=== PATIENT | female | born 1950 | race African-American/Black ===

== ENCOUNTER 2019-10-14 11:06 | Emergency (ER) | payer MEDICARE, OTHER ==
[~2019-10-14] VITALS: Ht 165.1 cm; Wt 61.5 kg
[2019-10-14] MEDS ORDERED: AMLO5TAB88 PO (11:18)
[2019-10-14] MEDS ORDERED: SODIUM CHLORIDE 0.9% 1,000 ML IV ONE (11:37)
[2019-10-14] MEDS ORDERED: KETOROLAC 30MG/ML VIAL IV STA (11:37)
[2019-10-14 12:12] LABS: CLARITY URINE CLEAR (CLEAR); COLOR URINE YELLOW (YELLOW); KETONES URINE NEGATIVE (NEGATIVE); LEUKOCYTE ESTERASE URINE NEGATIVE (NEGATIVE); NITRITE URINE NEGATIVE (NEGATIVE); OCCULT BLOOD URINE NEGATIVE (NEGATIVE); PROTEIN URINE TRACE (NEGATIVE); SPECIFIC GRAVITY URINE 1.022 (1.005-1.030)
[2019-10-14 12:17] LABS: CHLORIDE 103 mEq/L (98-107)
[2019-10-14 12:20] LABS: HEMATOCRIT. 30.2 % (36.0-48.0); HEMOGLOBIN. 10.3 g/dL (12.0-16.0); MEAN CORPUSCULAR HEMOGLOBIN 28.4 pg (28.0-32.0); MEAN CORPUSCULAR VOLUME 83.1 fL (81.0-99.0); MEAN PLATELET VOLUME 7.4 fl (7.4-10.4); PLATELET 415 x1000/uL (130-400); RED BLOOD CELL COUNT 3.63 mill/uL (4.2-5.4); RED CELL DISTRIBUTION WIDTH 19.4 % (11.6-14.6)
[2019-10-14 12:40] LABS: NUCLEATED RED BLOOD CELLS 1 /100 WBC
[2019-10-14 12:41] LABS: PLATELET ESTIMATE SLIGHTLY INCREASED
[2019-10-14] MEDS ORDERED: lasix (13:56)
[2019-10-14] MEDS ORDERED: HYDROCODONE/ACETAMINOPHEN 5/325MG TABLET PO ONE (14:15)
[2019-10-14 15:08] VITALS: BP 144/92
== END 2019-10-14 15:26 | disposition home or self-care (01) ==
LOC: ER 11:06
DX: K80.20 Calculus of gallbladder without cholecystitis without obstruction (principal); M54.9 Dorsalgia, unspecified; I10 Essential (primary) hypertension; Z98.890 Other specified postprocedural states
CPT/HCPCS: 36415; 74176; 76700; 80053; 81003; 83690; 85025; 96374; 99285; J1885; J7030